=== PATIENT | female | born 1980 | race African-American/Black ===

== ENCOUNTER 2016-07-03 22:05 | Emergency (ER) | payer OTHER ==
[~2016-07-03] VITALS: Ht 177.8 cm; Wt 108.9 kg
[~2016-07-03 22:05] MED LIST: NKM; ZOFRAN ODT4 MG ORAL
--- NOTE | 2016-07-03 22:17 | Emergency Room Report ---
History of Present Illness General Chief Complaint: Abdominal Pain Source: Patient, EMS Present Illness HPI This is a 36-year-old female with history of diet-controlled diabetes. She also has a previous hysterectomy and abdominal surgery secondary to intestinal hemorrhage per patient. She present with 2 day history of abdominal pain with nausea and vomiting and diarrhea. Pain is 7/10. Sharp in nature. Denies any fever or chills. Denies any urinary complaint. No radiation. Pain is diffuse. Allergies: Coded Allergies: No Known Allergies (Unverified , 12/10/15) Patient History Past Medical History: see triage record, old chart reviewed, DM Past Surgical History: hysterectomy, other Pertinent Family History: none Social History: Denies: drug use Last Menstrual Period: 06/02/16 Now: No Immunizations: other Reviewed Nursing Documentation: PMH: Agreed, PSxH: Agreed Nursing Documentation-PMH Past Medical History: No Stated History Hx Cardiac Problems: No Hx Hypertension: Yes Hx Diabetes: Yes Hx Cancer: No Hx Gastrointestinal Problems: No Hx Neurological Problems: No Review of Systems Eye: Denies: blurred vision, eye pain ENT: Denies: ear pain, nose congestion, throat swelling Respiratory: Denies: cough, shortness of breath Cardiovascular: Denies: chest pain, palpitations Gastrointestinal: Reports: abdominal pain, diarrhea, nausea, vomiting Musculoskeletal: Denies: back pain, joint pain Skin: Denies: rash Neurological: Denies: headache, numbness Endocrine: Denies: increased thirst, increased urine Hematologic/Lymphatic: Denies: easy bruising All Other Systems: negative except mentioned in HPI Physical Exam Vital Signs Date Time Temp Pulse Resp B/P Pulse Ox O2 Delivery O2 Flow Rate FiO2 07/03/16 21:59 97.3 80 16 120/90 Room Air vitals normal Sp02 EP Interpretation: reviewed, normal General Appearance: well appearing, no apparent distress, alert, obese Head: normocephalic, atraumatic Eyes: bilateral eye EOMI, bilateral eye PERRL ENT: hearing grossly normal, normal pharynx Neck: full range of motion, supple, no meningismus Respiratory: chest non-tender, lungs clear, normal breath sounds Cardiovascular #1: regular rate, rhythm, no murmur Gastrointestinal: normal bowel sounds, non tender, no mass, no organomegaly, no bruit, non-distended Musculoskeletal: back normal, normal range of motion, other - Bilateral lower extremity with lymphedema. She has also to the left lower leg. Slightly draining clear. No abscess. Neurologic: alert, oriented x3 Psychiatric: mood/affect normal Skin: warm/dry Medical Decision Making Diagnostic Impression: Primary Impression: Abdominal pain Qualified Codes: R10.84 - Generalized abdominal pain Additional Impressions: Obesity (BMI 30.0-34.9) Anemia Qualified Codes: D64.9 - Anemia, unspecified Stasis ulcer of left lower extremity ER Course Patient presents with chief jamar abdominal pain with vomiting and diarrhea. She has none of those here. My exam showed abdomen is soft. CT scan of abdomen is benign. She is eating and drinking now. There is a finding of groundglass opacity in the left lower lung. I will go ahead and put her on antibiotics. She has no cough or fever however. Probably an incidental finding. Lab Results Impression labs unremarkable CT/MRI/US Diagnostic Results CT/MRI/US Diagnostic Results : Imaging Test Ordered: CT abdomen and pelvis Impression Read by radiologist. Groundglass opacity left lower low. Fatty liver. Last Vital Signs Date Time Temp Pulse Resp B/P Pulse Ox O2 Delivery O2 Flow Rate FiO2 07/03/16 21:59 97.3 80 16 120/90 Room Air Status: improved Disposition: HOME, SELF-CARE Condition: Stable Scripts Azithromycin* (ZITHROMAX*) 250 Mg Tablet 250 MG ORAL DAILY, #6 TAB 0 Refills Take two tablets by mouth today, then take one tablet by mouth daily for four days Prov: CHANDNI PICKETT M.D. 07/04/16 Patient Instructions: Abdominal Pain, Adult Additional Instructions: Followup with your DrVidya in 7 days. Return if symptom worsen. CHANDNI PICKETT M.D. Jul 03, 2016 22:17
[2016-07-03] MEDS ORDERED: Ketorolac 30mg Inj IV ONE (22:30)
[2016-07-03 22:46] LABS: BASOPHILS % (AUTO) 0.5 % (0.0-2.0); EOSINOPHILS % (AUTO) 0.3 % (0.0-3.0); LYMPHOCYTES % (AUTO) 26.9 % (20.0-45.0); MEAN CORPUSCULAR HEMOGLOBIN 28.9 PG (27.0-31.0); MEAN CORPUSCULAR HGB CONC 30.6 G/DL (32.0-36.0); MEAN CORPUSCULAR VOLUME 94 FL (80-99); MEAN PLATELET VOLUME 6.1 FL (6.5-10.1); MONOCYTES % (AUTO) 10.1 % (1.0-10.0); NEUTROPHILS % (AUTO) 62.2 % (45.0-75.0); PLATELET COUNT 362 K/UL (150-450); RED BLOOD COUNT 3.85 M/UL (4.20-5.40); RED CELL DISTRIBUTION WIDTH 18.1 % (11.6-14.8); WHITE BLOOD COUNT 8.8 K/UL (4.8-10.8)
[2016-07-03 23:00] VITALS: BP 126/85
[2016-07-03 23:03] LABS: ALANINE AMINOTRANSFERASE 31 U/L (3-33); ALBUMIN/GLOBULIN RATIO 0.7 (1.0-2.7); ANION GAP 14 (5-15); ASPARTATE AMINO TRANSFERASE 45 U/L (5-40); CALCIUM 9.1 mg/dL (8.6-10.2); CARBON DIOXIDE 26 mEQ/L (20-30); CHLORIDE 98 mEQ/L (98-107); CREATININE 0.8 mg/dL (0.5-0.9); GLOMERULAR FILTRATION RATE > 60 mL/min (>60); HEMOLYSIS 2; LIPASE 31 U/L (< 60); POTASSIUM 4.4 mEQ/L (3.4-4.9); SODIUM 138 mEQ/L (135-145); TOTAL PROTEIN 8.6 g/dL (6.6-8.7)
[2016-07-03 23:17] VITALS: BP 132/64
[2016-07-03 23:25] LABS: APPEARANCE,URINE CLEAR; KETONES,URINE NEGATIVE (NEGATIVE); NITRITE,URINE NEGATIVE (NEGATIVE); PH,URINE 6.5 (4.5-8.0); PROTEIN,URINE NEGATIVE (NEGATIVE); UROBILINOGEN,URINE NORMAL MG/DL (0.0-1.0)
[2016-07-03 23:45] LABS: LEUKOCYTE ESTERASE ,URINE NEGATIVE (NEGATIVE)
[2016-07-04] VITALS: BP 128/67
[2016-07-04] MEDS ORDERED: AZITHROMYCIN250 MG ORAL (00:05)
[2016-07-04 00:40] VITALS: BP 128/67
--- NOTE | 2016-07-04 09:38 | Diagnostic Imaging Report ---
Indication: Abdominal pain Technique: Continuous helical transaxial imaging of the abdomen and pelvis was obtained from the lung bases to the pubic symphysis. No intravenous contrast was administered. Coronal 2-D reformats were also obtained. Total Dose length Product (DLP): [address] Dose Index Volume (CTDIvol): 20 mGy Comparison: none Findings: The lung bases are clear. The liver is low in density consistent with fatty infiltration. Liver appears prominent as well. Spleen is unremarkable. Evaluation of solid organs is limited on this study done without contrast. There are probable gallstones present. Appendix is probably identified in the left hemipelvis (for example series 3, images 118-123 and series 6, image 49). There are no secondary signs of appendicitis appreciated. The cecum appears to be very low in location within the lower pelvis. The terminal ileum is not well seen. The uterus is present. Urinary bladder is nondistended. Impression: Hepatomegaly with fatty infiltration. Suspected gallstones Appendix appears normal and is probably in the left hemipelvis associated with low lying somewhat medial cecum. The CT scanner at [facility] is accredited by the [employer] and the scans are performed using protocols designed to limit radiation exposure to as low as reasonably achievable to attain images of sufficient resolution adequate for diagnostic evaluation.
== END 2016-07-04 00:45 | disposition home or self-care (01) ==
LOC: EDBD 22:05 → EMR 22:19
DX: R10.9 Unspecified abdominal pain (principal); E66.9 Obesity, unspecified; Z68.34 Body mass index [BMI] 34.0-34.9, adult; D64.9 Anemia, unspecified; R11.2 Nausea with vomiting, unspecified; Z90.710 Acquired absence of both cervix and uterus; I10 Essential (primary) hypertension; E11.9 Type 2 diabetes mellitus without complications; I89.0 Lymphedema, not elsewhere classified; K76.0 Fatty (change of) liver, not elsewhere classified
CPT/HCPCS: 36415; 74176; 80053; 81003; 83690; 85025; 96374; 96375; 99284; J1885; J2405

== ENCOUNTER 2018-09-05 20:46 | Emergency (ER) | payer OTHER ==
[~2018-09-05] VITALS: Ht 172.7 cm; Wt 104.3 kg
[~2018-09-05 20:46] MED LIST changes: +AZITHROMYCIN250 MG ORAL
[2018-09-05 20:50] VITALS: BP 98/58
--- NOTE | 2018-09-05 20:50 | NUR ---
ED Nurse Note: pt brought in by [facility] c/o upper quad abd pain, n/v/d x 3 hours, pt states she ate some sandwich today. pt AA&ox4, gcs=15, skin warm and dry, resp even and unlabored on RA, +n/v, no diarrhea, no blood found in emesis at this time, abd soft and tender, active BS, will cont monitor.
--- NOTE | 2018-09-05 21:01 | Emergency Room Report ---
History of Present Illness General Chief Complaint: Nausea, Vomiting, and Diarrhea Source: Patient, Medical Record Present Illness HPI Is a 38-year-old female with diet-controlled diabetes. She also has a previous section surgery. She presents with chief complaint of abdominal pain with vomiting. Onset today. Hudson generalized weakness. No diarrhea. No fever chills. Pain is crampy in nature. 7 out of 10. Denies any other complaint. Allergies: Coded Allergies: No Known Allergies (Unverified , 12/10/15) Patient History Past Medical History: see triage record, old chart reviewed Past Surgical History: Pertinent Family History: none Social History: Denies: smoking Now: No Immunizations: other Reviewed Nursing Documentation: PMH: Agreed; PSxH: Agreed Nursing Documentation-PMH Hx Cardiac Problems: No Hx Hypertension: Yes Hx Diabetes: Yes Hx Cancer: No Hx Gastrointestinal Problems: No Hx Neurological Problems: No Review of Systems Constitutional: Reports: weakness Eye: Denies: eye pain, blurred vision ENT: Denies: ear pain, nose congestion, throat swelling Respiratory: Denies: cough, shortness of breath Cardiovascular: Denies: chest pain, palpitations Gastrointestinal: Reports: abdominal pain, nausea, vomiting; Denies: diarrhea Musculoskeletal: Denies: back pain, joint pain Skin: Denies: rash Neurological: Denies: headache, numbness Endocrine: Denies: increased thirst, increased urine Hematologic/Lymphatic: Denies: easy bruising All Other Systems: negative except mentioned in HPI Physical Exam Vital Signs Date Time Temp Pulse Resp B/P (MAP) Pulse Ox O2 Delivery O2 Flow Rate FiO2 09/05/18 20:32 98.1 108 18 99/61 96 Room Air vitals unremarkable Sp02 EP Interpretation: reviewed, normal General Appearance: well appearing, no apparent distress, alert Head: normocephalic, atraumatic Eyes: bilateral eye PERRL, bilateral eye EOMI ENT: hearing grossly normal, normal pharynx Neck: full range of motion, supple, no meningismus Respiratory: chest non-tender, lungs clear, normal breath sounds Cardiovascular #1: regular rate, rhythm, no murmur Gastrointestinal: non tender, no mass, no organomegaly, no bruit, non-distended , decreased bowel sounds Musculoskeletal: back normal, gait/station normal, normal range of motion Neurologic: alert, oriented x3 Psychiatric: mood/affect normal Skin: warm/dry Medical Decision Making Diagnostic Impression: Primary Impression: Abdominal pain Qualified Codes: R10.84 - Generalized abdominal pain Additional Impressions: Vomiting with nausea, not intractable Qualified Codes: R11.2 - Nausea with vomiting, unspecified Anemia Qualified Codes: D64.9 - Anemia, unspecified ER Course Patient with abdominal pain and vomiting. She has no vomiting here. She sleeping comfortably. Labs unremarkable except for anemia. She is homeless but does not want to go to a group home. We'll discharge home. Lab Results Impression labs with anemia CT/MRI/US Diagnostic Results CT/MRI/US Diagnostic Results : Imaging Test Ordered: CT abdomen and pelvis Impression Read by radiologist. Fatty liver. Adenopathy. Last Vital Signs Date Time Temp Pulse Resp B/P (MAP) Pulse Ox O2 Delivery O2 Flow Rate FiO2 09/05/18 20:32 98.1 108 18 99/61 96 Room Air Status: improved Disposition: HOME, SELF-CARE Condition: Stable Scripts Ibuprofen* (MOTRIN*) 600 Mg Tablet 600 MG ORAL THREE TIMES A DAY, #30 TAB 0 Refills Prov: Richardson Howard MD 09/06/18 Additional Instructions: Follow-up with your doctor in 7 days. Return if symptom worsen. Richardson Howard MD Sep 05, 2018 21:01
[2018-09-05 21:40] LABS: APPEARANCE,URINE CLEAR; BILIRUBIN, URINE NEGATIVE (NEGATIVE); GLUCOSE, URINE (UA) NEGATIVE (NEGATIVE); KETONES,URINE 1+ (NEGATIVE); LEUKOCYTE ESTERASE ,URINE 1+ (NEGATIVE); NITRITE,URINE NEGATIVE (NEGATIVE); PH,URINE 5 (4.5-8.0); PROTEIN,URINE 1+ (NEGATIVE); UROBILINOGEN,URINE 4 MG/DL (0.0-1.0)
[2018-09-05 21:44] LABS: COLOR,URINE YELLOW
[2018-09-05 21:45] LABS: BASOPHILS % (AUTO) 1.1 % (0.0-2.0); EOSINOPHILS % (AUTO) 2.3 % (0.0-3.0); HEMATOCRIT 25.9 % (37.0-47.0); HEMOGLOBIN 8.1 G/DL (12.0-16.0); LYMPHOCYTES % (AUTO) 37.5 % (20.0-45.0); MEAN CORPUSCULAR VOLUME 86 FL (80-99); MONOCYTES % (AUTO) 9.6 % (1.0-10.0); NEUTROPHILS % (AUTO) 49.6 % (45.0-75.0); PLATELET COUNT 538 K/UL (150-450); RED CELL DISTRIBUTION WIDTH 19.1 % (11.6-14.8); WHITE BLOOD COUNT 9.7 K/UL (4.8-10.8)
[2018-09-05] MEDS ORDERED: Ketorolac 30mg Inj IV ONE (21:45)
--- NOTE | 2018-09-05 21:45 | NUR ---
ED Nurse Note: pt c/o abd pain, ERMD notified. -n/v/d at this time.
[2018-09-05] MEDS ORDERED: Ketorolac 30mg Inj ONE (21:46)
--- NOTE | 2018-09-05 21:53 | NUR ---
ED Nurse Note: pt off to CT.
[2018-09-05 21:58] LABS: ANION GAP 12 mmol/L (5-15); BLOOD UREA NITROGEN 13 mg/dL (7-18); CALCIUM 8.4 MG/DL (8.5-10.1); CARBON DIOXIDE 22 MMOL/L (21-32); CHLORIDE 102 MMOL/L (98-107); CREATININE 0.9 MG/DL (0.55-1.30); POTASSIUM 3.4 MMOL/L (3.5-5.1); SODIUM 135 MMOL/L (136-145)
[2018-09-05 22:03] LABS: ALANINE AMINOTRANSFERASE 18 U/L (12-78); ALBUMIN/GLOBULIN RATIO 0.3 (1.0-2.7); ALKALINE PHOSPHATASE 122 U/L (46-116); ASPARTATE AMINO TRANSFERASE 27 U/L (15-37); BILIRUBIN,TOTAL 0.2 MG/DL (0.2-1.0)
[2018-09-05 22:50] VITALS: BP 108/51
--- NOTE | 2018-09-05 23:50 | NUR ---
ED Nurse Note: pt currently sleeping, arousable to light shake, denies n/v/d nor pain at this time, will cont monitor. vss.
[2018-09-06] MEDS ORDERED: IBUPROFEN600 MG ORAL (00:24)
--- NOTE | 2018-09-06 03:15 | NUR ---
ED Nurse Note: pt cleared to be d/c per ERMD, pt states she is going to her aunts house but needs tap card, house sup notified and tap card provided, pt d/c and aftercare instruction provided w/ prescription, sandwich and juice provided per req, pt has weather appropriate clothing on, education done via discussion and handout, pt verbalized understanding and agrees with plan, vss, ambulatory w/ steady gait, left w/ all belongings. wristband and iv d/c.
[2018-09-06 03:17] VITALS: BP 118/67
--- NOTE | 2018-09-06 09:37 | Diagnostic Imaging Report ---
Indication: Abdominal Technique: Spiral acquisitions obtained through the abdomen and pelvis. No oral contrast utilized, per emergency room physician request No IV contrast utilized, per referring physician request.. Multiplanar reconstructions were generated. Total dose length product 915.22 mGycm. CTDIvol(s) 17.49 mGy. Dose reduction achieved using automated exposure control Comparison: 07/03/2016 Findings: There is no evidence of diverticulosis or diverticulitis. The appendix is not definitely visualized, but no findings to suggest acute appendicitis are evident. No small bowel distention. No free or loculated intraperitoneal gas or fluid is evident. The distal esophagus, stomach, duodenum are unremarkable. Lack of IV contrast limits assessment of solid organs. The liver is enlarged. It is diffusely hypoattenuating. No focal abnormality demonstrated. The gallbladder, bile ducts, pancreas, spleen, adrenals, kidneys are all grossly unremarkable. Previously suspected gallstones are not evident on this exam Again demonstrated is periaortic and pericaval lymphadenopathy, with abundant enlarged lymph nodes, largest measuring up to 2.3 cm long axis dimension. Abundant, prominent but not frankly enlarged nodes are also seen in the bilateral inguinal regions, appearing equivocally somewhat more conspicuous than on the prior study. No pelvic mass or adenopathy. Uterus and adnexal structures appear unremarkable. There is mild edema of the subcutaneous fat in the hip and buttock regions. This is a new finding. The included lung bases are clear. The bones are unremarkable Impression: Limited exam, due to lack of oral and IV contrast Hepatomegaly. Hepatic steatosis, also previously reported Retroperitoneal and borderline bilateral inguinal lymphadenopathy, also previously demonstrated. This is nonspecific, could indicate reactive change, inflammation, neoplasm New finding of mild edema of the subcutaneous fat This agrees with the preliminary interpretation provided overnight by [facility] teleradiology service. The CT scanner at [facility] is accredited by the [employer] and the scans are performed using protocols designed to limit radiation exposure to as low as reasonably achievable to attain images of sufficient resolution adequate for diagnostic evaluation.
== END 2018-09-06 03:17 | disposition home or self-care (01) ==
LOC: EDBD 20:46 → EMR 21:25
DX: R11.2 Nausea with vomiting, unspecified (principal); R10.84 Generalized abdominal pain; D64.9 Anemia, unspecified; E11.9 Type 2 diabetes mellitus without complications; I10 Essential (primary) hypertension
CPT/HCPCS: 36415; 74176; 80053; 80307; 81003; 81025; 83690; 85025; 96361; 96374; 96375; 99284; J1885; J2405

== ENCOUNTER 2018-09-15 20:34 | Emergency (ER) | payer OTHER ==
[~2018-09-15] VITALS: Ht 165.1 cm; Wt 77.1 kg
[~2018-09-15 20:34] MED LIST changes: +IBUPROFEN600 MG ORAL
[2018-09-15] MEDS ORDERED: NKM (20:37)
[2018-09-15 20:39] VITALS: BP 124/84
--- NOTE | 2018-09-15 21:56 | Emergency Room Report ---
History of Present Illness General Chief Complaint: Vomiting Source: Patient Present Illness HPI Is a 38-year-old female with psychiatric history. She complaining of feeling nauseous. This is a chronic problem for her. I saw her last week for the same. No vomiting. No abdominal pain. Also complaining of leg pain and bilateral feet pain. Also chronic problem. Denies any other complaint. No diarrhea. Allergies: Coded Allergies: No Known Allergies (Unverified , 12/10/15) Patient History Past Medical History: see triage record, old chart reviewed Past Surgical History: other Pertinent Family History: none Social History: Denies: smoking Last Menstrual Period: n/a Now: No Immunizations: other Reviewed Nursing Documentation: PMH: Agreed; PSxH: Agreed Nursing Documentation-PMH Past Medical History: No History, Except For Hx Cardiac Problems: No Hx Hypertension: Yes Hx Diabetes: Yes Hx Cancer: No Hx Gastrointestinal Problems: No Hx Neurological Problems: No Review of Systems Eye: Denies: eye pain, blurred vision ENT: Denies: ear pain, nose congestion, throat swelling Respiratory: Denies: cough, shortness of breath Cardiovascular: Denies: chest pain, palpitations Gastrointestinal: Reports: nausea; Denies: abdominal pain, diarrhea, vomiting Musculoskeletal: Denies: back pain, joint pain Skin: Denies: rash Neurological: Denies: headache, numbness Endocrine: Denies: increased thirst, increased urine Hematologic/Lymphatic: Denies: easy bruising All Other Systems: negative except mentioned in HPI Physical Exam Vital Signs Date Time Temp Pulse Resp B/P (MAP) Pulse Ox O2 Delivery O2 Flow Rate FiO2 09/15/18 20:34 98.2 84 20 124/84 98 Room Air vitals normal Sp02 EP Interpretation: reviewed, normal General Appearance: well appearing, no apparent distress, alert Head: normocephalic, atraumatic Eyes: bilateral eye PERRL, bilateral eye EOMI ENT: hearing grossly normal, normal pharynx Neck: full range of motion, supple, no meningismus Respiratory: chest non-tender, lungs clear, normal breath sounds Cardiovascular #1: regular rate, rhythm, no murmur Gastrointestinal: normal bowel sounds, non tender, no mass, no organomegaly, no bruit, non-distended Musculoskeletal: back normal, gait/station normal, normal range of motion Psychiatric: mood/affect normal Skin: warm/dry Medical Decision Making Diagnostic Impression: Primary Impression: Nausea alone ER Course Patient with nausea but no vomiting here. She slept and then ate without any problem. We'll discharge home. No evidence of any acute abdomen. Last Vital Signs Date Time Temp Pulse Resp B/P (MAP) Pulse Ox O2 Delivery O2 Flow Rate FiO2 09/15/18 20:39 98.2 84 20 124/84 98 Room Air Status: improved Disposition: HOME, SELF-CARE Condition: Stable Patient Instructions: Nausea and Vomiting, Adult Additional Instructions: Follow-up with your doctor in 7 days. Return if symptom worsen. Richardson Howard MD Sep 15, 2018 21:56
[2018-09-15 22:20] VITALS: BP 122/85
== END 2018-09-15 22:20 | disposition home or self-care (01) ==
LOC: EDBD 20:34 → EMR 21:30
DX: R11.0 Nausea (principal); M79.672 Pain in left foot; M79.671 Pain in right foot; I10 Essential (primary) hypertension; E11.9 Type 2 diabetes mellitus without complications
CPT/HCPCS: 99282

== ENCOUNTER 2019-12-17 17:48 | Emergency (ER) | payer MEDICAID, OTHER ==
[~2019-12-17] VITALS: Ht 167.6 cm; Wt 104.3 kg
--- NOTE | 2019-12-17 18:25 | NUR ---
ED Nurse Note: IV established on right AC 18 ga, blood and urine specimen sent down
[2019-12-17 18:29] VITALS: BP 130/75
--- NOTE | 2019-12-17 18:31 | NUR ---
ED Nurse Note: Patient brought into ED from street by RA # [id number] due to bilateral leg pain, swelling and sores. Patient presented with severe bilateral edema of lower extremities , pt has wound on her left leg, AA)x4, VSS at this time, skin is warm to touch.
[2019-12-17 18:34] LABS: APPEARANCE,URINE SLIGHTLY CLOUDY; BILIRUBIN, URINE NEGATIVE (NEGATIVE); GLUCOSE, URINE (UA) NEGATIVE (NEGATIVE); KETONES,URINE 1+ (NEGATIVE); LEUKOCYTE ESTERASE ,URINE 1+ (NEGATIVE); NITRITE,URINE NEGATIVE (NEGATIVE); PH,URINE 6 (4.5-8.0); PROTEIN,URINE 1+ (NEGATIVE); UROBILINOGEN,URINE 4 MG/DL (0.0-1.0)
[2019-12-17 18:37] LABS: BASOPHILS % (AUTO) 0.9 % (0.0-2.0); EOSINOPHILS % (AUTO) 1.1 % (0.0-3.0); HEMOGLOBIN 8.7 G/DL (12.0-16.0); LYMPHOCYTES % (AUTO) 35.9 % (20.0-45.0); MEAN CORPUSCULAR VOLUME 91 FL (80-99); MONOCYTES % (AUTO) 11.9 % (1.0-10.0); NEUTROPHILS % (AUTO) 50.3 % (45.0-75.0); PLATELET COUNT 253 K/UL (150-450); RED BLOOD COUNT 3.09 M/UL (4.20-5.40); RED CELL DISTRIBUTION WIDTH 25.4 % (11.6-14.8)
[2019-12-17 18:43] LABS: INR 1.1 (0.9-1.1)
--- NOTE | 2019-12-17 18:43 | Diagnostic Imaging Report ---
EXAM: XR Chest, 1 View CLINICAL HISTORY: DYSPNEA TECHNIQUE: Frontal view of the chest. COMPARISON: 02/10/16 FINDINGS: Lungs: Low lung volumes with bronchovascular crowding. No consolidation, pleural effusion, or pneumothorax. Pleural space: See above. Heart: Unremarkable. No cardiomegaly. Mediastinum: Unremarkable. Bones/joints: Unremarkable. IMPRESSION: 1. Low lung volumes with bronchovascular crowding. 2. Otherwise no acute cardiopulmonary disease. 3. If there is continued concern, recommend frontal and lateral chest radiographs or CT.
--- NOTE | 2019-12-17 18:53 | Emergency Room Report ---
History of Present Illness General Chief Complaint: Pain Source: Patient (Joey Ramirez MD) Present Illness HPI Patient presents with bilateral leg pain via EMS. She has chronic stasis ulcers and this is a chronic problem for her. She states the pain was increased over the last few days. She is variable in her history whether she has had fever or cough. She denies fever to paramedics and also to the RN but nods her head that she has had a fever to me. The place where her leg hurts the most is on the lateral side of her left leg. She reports that pain as 10/ 10. It is burning and aching. The patient states she has not eaten for 3 days. She has been drinking alcohol daily. When she drinks a lot she does not eat very much food. She has had both constipation and diarrhea apparently. She denies depression or suicidal ideation at this time. She states she does not desire to stop drinking at this time. 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 No sore throat, palpitations, nausea, vomiting, diarrhea, dysuria, abdominal pain, shortness of breath, visual changes, dizziness, headache. (Joey Ramirez MD) Allergies: Coded Allergies: No Known Allergies (Unverified , 12/10/15) COVID-19 Screening Contact w/high risk pt: No Recent Travel to affected area: No Experienced COVID-19 symptoms?: No COVID-19 Testing performed INSET CUTTER: No (Joey Ramirez MD) Patient History Past Medical History: see triage record Social History: Reports: alcohol use; Denies: smoking, drug use Social History Narrative Living on the streets Now: No Reviewed Nursing Documentation: PMH: Agreed; PSxH: Agreed (Joey Ramirez MD) Nursing Documentation-PMH Past Medical History: No History, Except For Hx Cardiac Problems: No Hx Hypertension: Yes Hx Diabetes: Yes Hx Cancer: No Hx Gastrointestinal Problems: No Hx Neurological Problems: No (Joey Ramirez MD) Review of Systems All Other Systems: negative except mentioned in HPI (Joey Ramirez MD) Physical Exam Vital Signs Date Time Temp Pulse Resp B/P (MAP) Pulse Ox O2 Delivery O2 Flow Rate FiO2 12/17/19 17:54 98.8 90 18 130/75 (93) 97 Room Air General Appearance: lethargic - Somewhat, obese, other - Disheveled Eyes: bilateral eye PERRL, bilateral eye EOMI, bilateral eye Scleral Injection ENT: moist mucus membranes Neck: full range of motion, supple Respiratory: normal inspection, chest non-tender Cardiovascular #1: regular rate, rhythm, edema - Luisito with venous stasis changes Cardiovascular #2: 2+ radial (L), 2+ dorsalis pedis (R), 2+ dorsalis pedis (L) Gastrointestinal: normal bowel sounds, non tender, overweight Genitourinary: no CVA tenderness Musculoskeletal: back normal, tender - L lateral leg, swelling Neurologic: motor strength/tone normal, oriented - X2, sensory intact, speech normal - Somewhat slurred Psychiatric: depressed affect Skin: warm/dry, other - caked dirt LE, slight erythema L lateral leg (Joey Ramirez MD) Medical Decision Making Diagnostic Impression: Primary Impression: Venous stasis ulcers Qualified Codes: I83.002 - Varicose veins of unspecified lower extremity with ulcer of calf; L97.201 - Non-pressure chronic ulcer of unspecified calf limited to breakdown of skin Additional Impressions: Acute alcohol intoxication Qualified Codes: F10.929 - Alcohol use, unspecified with intoxication, unspecified BMI 37.0-37.9, adult Anemia Qualified Codes: D64.9 - Anemia, unspecified ER Course Patient with chronic stasis ulcers of her legs presents with increased leg pain. Differential includes increased edema, cellulitis, DVT amongst others. Evaluation with EKG, chest x-ray and labs. Treatment with Lasix. Patient is placed on a agriculture mechanic. EKG sinus tachycardia. Chest x-ray normal. Labs with normal white count. Patient with hemoglobin of 8.7. (This is improved from August 2018). CMP with potassium minimally low, elevated LDH and AST. Urinalysis essentially clear. Blood alcohol 271. Tox screen negative. Lactic acid minimally elevated at 2.2. Patient diuresing. Legs cleansed and antibiotic ointment applied. Patient requested food and was fed. Lactic acid increasing. Admit observation. 2139 in addition IV hydration started. Discharge canceled. No evidence of systemic infection or cellulitis. Sepsis is doubted. However with increased lactic acid patient needs observation. There are other possible etiologies to the increased lactic acid. With normal white count sepsis is unlikely. The infection on her left lower extremity appears to be localized. In addition based on her exam DVT is not suspected as her oxygen saturation is normal. Initial lethargy was improved. It is felt to be related to alcohol ingestion. Patient signed out to Dr. Howard. Laboratory Tests Test 12/17/19 18:10 12/17/19 19:55 White Blood Count 6.0 K/UL (4.8-10.8) Red Blood Count 3.09 M/UL (4.20-5.40) L Hemoglobin 8.7 G/DL (12.0-16.0) L Hematocrit 28.0 % (37.0-47.0) L Mean Corpuscular Volume 91 FL (80-99) Mean Corpuscular Hemoglobin 28.0 PG (27.0-31.0) Mean Corpuscular Hemoglobin Concent 30.9 G/DL (32.0-36.0) L Red Cell Distribution Width 25.4 % (11.6-14.8) H Platelet Count 253 K/UL (150-450) Mean Platelet Volume 6.1 FL (6.5-10.1) L Neutrophils (%) (Auto) 50.3 % (45.0-75.0) Lymphocytes (%) (Auto) 35.9 % (20.0-45.0) Monocytes (%) (Auto) 11.9 % (1.0-10.0) H Eosinophils (%) (Auto) 1.1 % (0.0-3.0) Basophils (%) (Auto) 0.9 % (0.0-2.0) Prothrombin Time 12.2 SEC (9.30-11.50) H Prothrombin Time INR 1.1 (0.9-1.1) Activated Partial Thromboplast Time 28 SEC (23-33) Urine Color Yellow Urine Appearance Slightly cloudy Urine pH 6 (4.5-8.0) Urine Specific [place] 1.015 (1.005-1.035) Urine Protein 1+ (NEGATIVE) H Urine Glucose (UA) Negative (NEGATIVE) Urine Ketones 1+ (NEGATIVE) H Urine Blood Negative (NEGATIVE) Urine Nitrite Negative (NEGATIVE) Urine Bilirubin Negative (NEGATIVE) Urine Urobilinogen 4 MG/DL (0.0-1.0) H Urine Leukocyte Esterase 1+ (NEGATIVE) H Urine RBC 0-2 /HPF (0 - 2) Urine WBC 2-4 /HPF (0 - 2) Urine Squamous Epithelial Cells Few /LPF (NONE/OCC) Urine Bacteria Few /HPF (NONE) Sodium Level 136 MMOL/L (136-145) Potassium Level 3.2 MMOL/L (3.5-5.1) L Chloride Level 103 MMOL/L (98-107) Carbon Dioxide Level 24 MMOL/L (21-32) Anion Gap 9 mmol/L (5-15) Blood Urea Nitrogen 7 mg/dL (7-18) Creatinine 0.9 MG/DL (0.55-1.30) Estimated Glomerular Filtration Rate > 60 mL/min (>60) Glucose Level 126 MG/DL (74-106) H Lactic Acid Level 2.20 mmol/L (0.4-2.0) H 2.90 mmol/L (0.66-2.22) H Calcium Level 8.0 MG/DL (8.5-10.1) L Magnesium Level 2.0 MG/DL (1.8-2.4) Ferritin 24 NG/ML (8-388) Total Bilirubin 0.6 MG/DL (0.2-1.0) Aspartate Amino Transferase (AST) 278 U/L (15-37) H Alanine Aminotransferase (ALT) 60 U/L (12-78) Alkaline Phosphatase 211 U/L (46-116) H Lactate Dehydrogenase 288 U/L (81-234) H Total Creatine Kinase 127 U/L (26-308) Troponin I 0.004 ng/mL (0.000-0.056) C-Reactive Protein, Quantitative < 0.4 mg/dL (0.00-0.90) Pro-B-Type Natriuretic Peptide 35 pg/mL (0-125) Total Protein 9.4 G/DL (6.4-8.2) H Albumin 2.3 G/DL (3.4-5.0) L Globulin 7.1 g/dL Albumin/Globulin Ratio 0.3 (1.0-2.7) L Lipase 124 U/L (73-393) Urine Opiates Screen Negative (NEGATIVE) Urine Barbiturates Screen Negative (NEGATIVE) Phencyclidine (PCP) Screen Negative (NEGATIVE) Urine Amphetamines Screen Negative (NEGATIVE) Urine Benzodiazepines Screen Negative (NEGATIVE) Urine Cocaine Screen Negative (NEGATIVE) Urine Marijuana (THC) Screen Negative (NEGATIVE) Serum Alcohol 271 mg/dL (Joey Ramirez MD) ER Course Patient signed out to me. She is pending admission versus transfer based on her insurance. She is to be transferred to [facility]. I discussed the case with Dr. Pena to the patient for transfer. (Richardson Howard MD) EKG Diagnostic Results Rate: tachycardiac Rhythm: NSR ST Segments: no acute changes (Joey Ramirez MD) Rhythm Strip Diag. Results EP Interpretation: yes Rhythm: no PVC's, no ectopy, other - Sinus tachycardia 106 (Joey Ramirez MD) Chest X-Ray Diagnostic Results Chest X-Ray Diagnostic Results : Chest X-Ray Ordered: Yes # of Views/Limited/Complete: 1 View Indication: Other EP Interpretation: Yes Interpretation: no consolidation, no effusion, no pneumothorax Impression: No acute disease Electronically Signed by: Electronically signed by Joey Ramirez MD (Joey Ramirez MD) Last Vital Signs Date Time Temp Pulse Resp B/P (MAP) Pulse Ox O2 Delivery O2 Flow Rate FiO2 12/18/19 00:06 98.6 108 16 120/70 97 Room Air Status: improved (Joey Ramirez MD) Disposition: SHORT-TERM HOSP - [facility] Condition: Serious Referrals: NON PHYSICIAN (PCP) Joey Ramirez MD Dec 17, 2019 18:53 Richardson Howard MD Dec 17, 2019 23:41
[2019-12-17 18:57] LABS: ANION GAP 9 mmol/L (5-15); BLOOD UREA NITROGEN 7 mg/dL (7-18); CARBON DIOXIDE 24 MMOL/L (21-32); CHLORIDE 103 MMOL/L (98-107); CREATININE 0.9 MG/DL (0.55-1.30); POTASSIUM 3.2 MMOL/L (3.5-5.1); SODIUM 136 MMOL/L (136-145)
--- NOTE | 2019-12-17 19:00 | NUR ---
HAND-OFF: Report given to SILVIA Fierro .
[2019-12-17 19:09] LABS: COLOR,URINE YELLOW
[2019-12-17 19:22] LABS: ALANINE AMINOTRANSFERASE 60 U/L (12-78); ALBUMIN 2.3 G/DL (3.4-5.0); ALBUMIN/GLOBULIN RATIO 0.3 (1.0-2.7); ALKALINE PHOSPHATASE 211 U/L (46-116); ASPARTATE AMINO TRANSFERASE 278 U/L (15-37); BILIRUBIN,TOTAL 0.6 MG/DL (0.2-1.0); CREATINE KINASE 127 U/L (26-308); FERRITIN 24 NG/ML (8-388); LACTATE DEHYDROGENASE 288 U/L (81-234)
[2019-12-17] MEDS ORDERED: Bacitracin Oint UD TOPIC ONE (19:30)
[2019-12-17] MEDS ORDERED: FAMOTIDINE20 MG ORAL ×2 (19:51)
[2019-12-17] MEDS ORDERED: BACITRACIN15 GM TOPIC ×2 (19:51)
[2019-12-17] MEDS ORDERED: ONDANSETRON ODT4 MG BC ×2 (19:51)
[2019-12-17] MEDS ORDERED: TYLENOL325 MG ORAL ×2 (19:51)
[2019-12-17 20:10] VITALS: BP 122/64
[2019-12-17 22:08] VITALS: BP 126/76
--- NOTE | 2019-12-17 22:10 | NUR ---
Nurse Note: Pt brought in by ambulance 68 from [facility] for increasing short of breath and elevated temperature. N: Pt awake, follows commands and responds to basic questions. Pupils reactive, equal to light. IV established on RT AC. C: HR 100; denies chest pain. R: Pt RA; denies shortness of breath. 97% O2. GI: Approrate GI; denies abd pain, n/v. : Bedside commode in place; pt able to void. S: On inspection, LT ankle wound. Pt able to self clean. Bactiacin applied and wrapped with kerlix. All safety measures met; will continue to monitor.
[2019-12-17] MEDS ORDERED: cefTRIAXone 1 GM in NS 55 ML IVPB ONE (23:45)
[2019-12-18 00:06] VITALS: BP 120/70
--- NOTE | 2019-12-18 00:06 | NUR ---
Nurse Note: Report given to SILVIA Botello at [facility] for continuity of care. Pt a&ox4, VSS, afebrile. SLIV RT AC; patent. All orders completed per ERMD orders. Pt kept comfortable; food and water provided. Bedside commode at pt side. Pt left with all belongings.
== END 2019-12-18 00:06 | disposition short-term general hospital (02) ==
LOC: EDBD 17:48 → EMR 18:06
DX: I83.002 Varicose veins of unspecified lower extremity with ulcer of calf (principal); L97.201 Non-pressure chronic ulcer of unspecified calf limited to breakdown of skin; F10.129 Alcohol abuse with intoxication, unspecified; D64.9 Anemia, unspecified; I10 Essential (primary) hypertension; K59.00 Constipation, unspecified; R19.7 Diarrhea, unspecified; E11.9 Type 2 diabetes mellitus without complications; E66.3 Overweight; Z68.37 Body mass index [BMI] 37.0-37.9, adult; R00.0 Tachycardia, unspecified
CPT/HCPCS: 36415; 71045; 80053; 80307; 81003; 82550; 82728; 83605; 83615; 83690; 83735; 83880; 84484; 85025; 85610; 85730; 86140; 87040; 87081; 93005; 96361; 96365; 96375; G0480; J0696; J1940; J7030; Z7502; 99285

== ENCOUNTER 2020-05-10 19:36 | Emergency (ER) | payer OTHER ==
[~2020-05-10] VITALS: Ht 167.6 cm; Wt 90.7 kg
[~2020-05-10 19:36] MED LIST changes: +BACITRACIN15 GM TOPIC; +FAMOTIDINE20 MG ORAL; +ONDANSETRON ODT4 MG BC; +TYLENOL325 MG ORAL
[2020-05-10 20:27] LABS: BASOPHILS % (AUTO) 1.8 % (0.0-2.0); EOSINOPHILS % (AUTO) 2.6 % (0.0-3.0); HEMATOCRIT 27.3 % (37.0-47.0); HEMOGLOBIN 8.4 G/DL (12.0-16.0); LYMPHOCYTES % (AUTO) 54.8 % (20.0-45.0); MEAN CORPUSCULAR VOLUME 103 FL (80-99); MONOCYTES % (AUTO) 8.4 % (1.0-10.0); NEUTROPHILS % (AUTO) 32.4 % (45.0-75.0); PLATELET COUNT 322 K/UL (150-450); RED BLOOD COUNT 2.64 M/UL (4.20-5.40); RED CELL DISTRIBUTION WIDTH 19.9 % (11.6-14.8); WHITE BLOOD COUNT 4.9 K/UL (4.8-10.8)
[2020-05-10 20:33] VITALS: BP 114/70
[2020-05-10 20:40] LABS: AMMONIA 59 umol/L (11-32); ANION GAP 7 mmol/L (5-15); BLOOD UREA NITROGEN 6 mg/dL (7-18); CALCIUM 8.1 MG/DL (8.5-10.1); CARBON DIOXIDE 25 MMOL/L (21-32); CHLORIDE 104 MMOL/L (98-107); CREATININE 0.8 MG/DL (0.55-1.30); POTASSIUM 3.4 MMOL/L (3.5-5.1); SODIUM 135 MMOL/L (136-145)
[2020-05-10 20:55] LABS: ALANINE AMINOTRANSFERASE 44 U/L (12-78); ALBUMIN 2.6 G/DL (3.4-5.0); ALBUMIN/GLOBULIN RATIO 0.4 (1.0-2.7); ALKALINE PHOSPHATASE 173 U/L (46-116); ASPARTATE AMINO TRANSFERASE 124 U/L (15-37); BILIRUBIN,TOTAL 0.4 MG/DL (0.2-1.0)
[2020-05-10] MEDS ORDERED: Thiamine HCl 100 MG in D5W 55 ML IVPB ONE (22:00)
[2020-05-10] MEDS ORDERED: Lactulose 20gm/30ml UDC ORAL ONE (22:00)
--- NOTE | 2020-05-10 22:04 | Emergency Room Report ---
History of Present Illness General Chief Complaint: Alcohol Intoxication Source: Patient, EMS (Olman Beard MD) Present Illness HPI Patient is a 39-year-old female brought in by EMS for increased altered level of consciousness and recent alcohol intake. Patient had increased recent alcohol intake reports last intake of alcohol approximately 2 to 3 hours ago. Prior history of alcohol abuse as well as chronic venous stasis changes to her lower extremities. Had complains of increased thirst. (Olman Beard MD) Allergies: Coded Allergies: No Known Allergies (Unverified , 12/10/15) COVID-19 Screening Contact w/high risk pt: No Recent Travel to affected area: No Experienced COVID-19 symptoms?: No COVID-19 Testing performed ECONOMIC RESEARCH ASSISTANT: No (Olman Beard MD) Patient History Past Medical History: see triage record Reviewed Nursing Documentation: PMH: Agreed; PSxH: Agreed (Olman Beard MD) Nursing Documentation-PMH Hx Cardiac Problems: No Hx Hypertension: Yes Hx Diabetes: Yes Hx Cancer: No Hx Gastrointestinal Problems: No Hx Neurological Problems: No (Olman Beard MD) Review of Systems All Other Systems: negative except mentioned in HPI (Olman Beard MD) Physical Exam Vital Signs Date Time Temp Pulse Resp B/P (MAP) Pulse Ox O2 Delivery O2 Flow Rate FiO2 05/10/20 19:32 97.5 96 20 111/69 (83) 96 Room Air Sp02 EP Interpretation: reviewed, normal General Appearance: normal inspection, well appearing, no apparent distress, al ert, GCS 15, non-toxic Head: atraumatic ENT: normal ENT inspection, hearing grossly normal, normal voice Neck: normal inspection, full range of motion, supple, no bony tend Respiratory: normal inspection, lungs clear, normal breath sounds, no respiratory distress, no retraction, no wheezing Cardiovascular #1: regular rate, rhythm, no edema Gastrointestinal: normal inspection, normal bowel sounds, non tender, soft, no guarding, no hernia Genitourinary: no CVA tenderness Musculoskeletal: normal inspection, back normal, normal range of motion Neurologic: alert, motor strength/tone normal, seam presser III-XII nml as tested, oriented x3, responsive, speech normal, normal inspection Psychiatric: normal inspection, judgement/insight normal, mood/affect normal (Olman Beard MD) Medical Decision Making Diagnostic Impression: Primary Impression: Acute alcoholic intoxication Qualified Codes: F10.929 - Alcohol use, unspecified with intoxication, unspecified Additional Impressions: Venous stasis Chronic anemia ER Course Patient presented for altered mental status. Differential diagnosis include was not limited to alcohol tox occasion, hepatic encephalopathy, Wernicke's ence phalopathy among others. Because of complexity of patient's case laboratory tests and imaging studies were ordered. Patient was noted to have some prior history of alcohol abuse patient appears to be actively intoxicated with alcohol. Patient does have a some anemia which appears to be chronic. Patient was endorsed to Dr. Ramirez pending sobering. Labs Test 05/10/20 20:15 White Blood Count 4.9 K/UL (4.8-10.8) Red Blood Count 2.64 M/UL (4.20-5.40) Hemoglobin 8.4 G/DL (12.0-16.0) Hematocrit 27.3 % (37.0-47.0) Mean Corpuscular Volume 103 FL (80-99) Mean Corpuscular Hemoglobin 32.0 PG (27.0-31.0) Mean Corpuscular Hemoglobin Concent 31.0 G/DL (32.0-36.0) Red Cell Distribution Width 19.9 % (11.6-14.8) Platelet Count 322 K/UL (150-450) Mean Platelet Volume 6.4 FL (6.5-10.1) Neutrophils (%) (Auto) 32.4 % (45.0-75.0) Lymphocytes (%) (Auto) 54.8 % (20.0-45.0) Monocytes (%) (Auto) 8.4 % (1.0-10.0) Eosinophils (%) (Auto) 2.6 % (0.0-3.0) Basophils (%) (Auto) 1.8 % (0.0-2.0) Sodium Level 135 MMOL/L (136-145) Potassium Level 3.4 MMOL/L (3.5-5.1) Chloride Level 104 MMOL/L (98-107) Carbon Dioxide Level 25 MMOL/L (21-32) Anion Gap 7 mmol/L (5-15) Blood Urea Nitrogen 6 mg/dL (7-18) Creatinine 0.8 MG/DL (0.55-1.30) Estimat Glomerular Filtration Rate > 60 mL/min (>60) Glucose Level 116 MG/DL (74-106) Calcium Level 8.1 MG/DL (8.5-10.1) Total Bilirubin 0.4 MG/DL (0.2-1.0) Aspartate Amino Transf (AST/SGOT) 124 U/L (15-37) Alanine Aminotransferase (ALT/SGPT) 44 U/L (12-78) Alkaline Phosphatase 173 U/L (46-116) Ammonia 59 umol/L (11-32) Troponin I 0.006 ng/mL (0.000-0.056) Total Protein 9.8 G/DL (6.4-8.2) Albumin 2.6 G/DL (3.4-5.0) Globulin 7.2 g/dL Albumin/Globulin Ratio 0.4 (1.0-2.7) Thyroid Stimulating Hormone (TSH) 1.167 uiU/mL (0.358-3.740) Salicylates Level 0.3 ug/mL (2.8-20) Acetaminophen Level < 2 MCG/ML (10-30) Serum Alcohol 347 mg/dL (Olman Beard MD) ER Course Please see above note. Patient with elevated blood alcohol. Patient reexamined by me. Still sleepy but answers to name. Continued observation. 0:35 Patient more alert. Denies SI or HI. Labs reviewed as well as prior transfer by me. Low h/h for several years. Urine not produced. States she has a friend she can stay with - she just needs transportation. 500 (Joey Ramirez MD) Last Vital Signs Date Time Temp Pulse Resp B/P (MAP) Pulse Ox O2 Delivery O2 Flow Rate FiO2 05/10/20 20:33 97.5 96 18 114/70 96 Room Air Status: improved (Olman Beard MD) Last Vital Signs Date Time Temp Pulse Resp B/P (MAP) Pulse Ox O2 Delivery O2 Flow Rate FiO2 05/11/20 07:30 97.9 88 20 116/70 98 Room Air Status: improved (Joey Ramirez MD) Disposition: HOME, SELF-CARE Condition: Improved Scripts Multivitamin With Minerals (MULTIVITAMINS WITH MINERALS*) 1 Each Tablet 1 TAB ORAL DAILY for SUPPLEMENT, #30 TAB Prov: Joey Ramirez MD 05/11/20 Referrals: [facility],REFERRING (PCP) Olman Beard MD May 10, 2020 22:04 Joey Ramirez MD May 11, 2020 00:36
[2020-05-11 03:56] VITALS: BP 112/68
[2020-05-11] MEDS ORDERED: MULTIVITAMINS1 EAC8 ORAL (04:05)
[2020-05-11 07:30] VITALS: BP 116/70
== END 2020-05-11 07:30 | disposition home or self-care (01) ==
LOC: EDBD 19:36 → EMR 20:40
DX: F10.929 Alcohol use, unspecified with intoxication, unspecified (principal); I87.8 Other specified disorders of veins; D64.9 Anemia, unspecified; I10 Essential (primary) hypertension; E11.9 Type 2 diabetes mellitus without complications; Y90.8 Blood alcohol level of 240 mg/100 ml or more
CPT/HCPCS: 36415; 80053; 82140; 84443; 84484; 85025; 96365; G0480; G0481; Z7502; 99284